=== PATIENT | male | born 1935 | race Asian ===

== ENCOUNTER → 2016-10-17 | Outpatient (CLI) | payer OTHER, MEDICARE ==
[~2016-10-17] MED LIST: AMLO-114 PO; ASPI325T45 PO; ATOR10TA82 PO; B-COCAP2 PO; CHOL100026 PO; LISI-461 PO; MULT-506 PO; OMEG10007 PO; OPTIRAY 320 IV PRN; VITA200C5 PO; VITACAP26 PO
[2016-10-17 11:09] LABS: BLOOD UREA NITROGEN 13 mg/dl (7-18)
--- NOTE | 2016-10-17 12:16 | DIAGNOSTIC IMAGING REPORT ---
CHEST CT WITH CONTRAST CT DOSE: 342.13 mGycm HISTORY: Pulmonary nodule. Follow-up. TECHNIQUE: Multiaxial CT images of the chest were performed following the intravenous administration of contrast. COMPARISON: Chest 10/01/2015. Chest CTA 06/16/2014. FINDINGS: No pleural effusions. No pneumothorax. The central airways are patent. Small fat-containing left-sided Bochdalek hernia. Stable 7 mm subpleural nodule within the right middle lobe. This demonstrates greater than 2 year stability and is therefore likely benign. Stable benign 6 mm nodular density within the lingula on image 211. A few linear scarlike density seen within the lung bases and right upper lobe. This is also unchanged. No new pulmonary nodules identified. A stable 7 mm hypodense nodule within the right thyroid lobe. The visualized liver and spleen are unremarkable. No mediastinal lymphadenopathy. Stable slightly prominent right hilar lymph nodes. Normal caliber thoracic aorta. The central pulmonary arteries are patent. IMPRESSION: No change from the prior studies. Stable subcentimeter pulmonary nodules which demonstrate greater than 2 year stability. Therefore, these are considered to be benign. Electronically signed by: Franki Clay M.D. 10/17/2016 12:15 PM Dictated Date/Time: 10/17/2016 12:09 PM
== END | disposition home or self-care (01) ==
LOC: C.CTS 09:31
PROVIDERS: ATTEND Family Medicine
DX: R91.1 Solitary pulmonary nodule (principal)

== ENCOUNTER → 2017-03-22 | Outpatient (CLI) | payer OTHER, MEDICARE ==
[~2017-03-22] MED LIST changes: -ATOR10TA82 PO; +ATOR10TA88 PO; -OPTIRAY 320 IV PRN
--- NOTE | 2017-03-22 20:43 | DIAGNOSTIC IMAGING REPORT ---
ULTRASOUND BILATERAL LOWER EXTREMITY VENOUS CLINICAL HISTORY: Lower extremity edema. COMPARISON STUDY: No priors. TECHNIQUE: Real-time, grayscale, and color Doppler sonography of the deep veins of the right and left lower extremity was performed from the inguinal crease to the calf. Compression and augmentation were utilized. FINDINGS: There is no sonographic evidence of deep venous thrombosis identified in the right or left lower extremity. The common femoral, superficial femoral, and popliteal veins are patent and normally compressible bilaterally. The greater saphenous vein and the profunda femoris vein at the junction with the common femoral vein are clear in both legs. The visualized calf veins are patent bilaterally. IMPRESSION: There is no sonographic evidence of deep venous thrombosis identified in the right or left lower extremity. Electronically signed by: Isra Keene M.D. 03/22/2017 8:41 PM Dictated Date/Time: 03/22/2017 8:41 PM
== END | disposition home or self-care (01) ==
LOC: C.ULTR 19:16
PROVIDERS: ATTEND Family Medicine
DX: R60.0 Localized edema (principal)

== ENCOUNTER → 2017-12-21 | Outpatient (CLI) | payer OTHER, MEDICARE ==
[~2017-12-21] MED LIST changes: -AMLO-114 PO; +AMLO10TA3 PO; +ASPECOTC PO; -ASPI325T45 PO; +ATOR10TA82 PO; -ATOR10TA88 PO; +OPTIRAY 320 IV PRN
--- NOTE | 2017-12-21 14:50 | DIAGNOSTIC IMAGING REPORT ---
ABD/PELVIS IV AND ORAL CONT CLINICAL HISTORY: 82 years-old Male presenting with malignant neoplasm of the rectum.. TECHNIQUE: Multidetector CT of the abdomen and pelvis was performed after the administration of oral and intravenous contrast. IV contrast: 117 mL of Optiray 320. A dose lowering technique was used consistent with the principles of ALARA (as low as reasonably achievable). COMPARISON: Pelvic MR from 10/01/[address] from 10/01/2015. CT DOSE (mGy.cm): The estimated cumulative dose is 587.89 mGy.cm. FINDINGS: Water Treatment Technician topogram: Unremarkable. Lung bases: Minimal basilar opacities, likely atelectasis. Stable solid 6 mm subpleural nodule in the right middle lobe (series 6 image 19). No new pulmonary nodule at the lung bases. Multichamber enlargement of the heart. No pericardial or pleural effusion. Liver: Normal morphology. No liver lesion. Patent hepatic vasculature. Biliary: No intrahepatic or extrahepatic biliary ductal dilatation. Gallbladder contains gallstones. Pancreas: Normal. Spleen: Numerous punctate calcifications in the spleen suggest a history of chronic granulomatous infection. Adrenal glands: Nonspecific nodular thickening of the adrenal glands, unchanged from prior. Kidneys and ureters: Normal. No hydronephrosis. Bladder: Circumferential bladder wall thickening. Pelvic organs: Prostate enlargement likely secondary to benign prostatic hyperplasia. Bowel: Mild thickening of the mesorectal fascia. No focal wall thickening of the rectum allowing for underdistention. Oral contrast has passed to the descending colon. No bowel obstruction. The appendix is normal. Peritoneal cavity: No free fluid or intraperitoneal gas. Lymph nodes: No enlarged lymph nodes in the abdomen or pelvis. Vasculature: Atherosclerosis of the normal caliber abdominal aorta. IVC patent. The appearance of the right common femoral vein is most likely related to mixing artifact. Abdominal wall: Normal. Musculoskeletal: Degenerative changes of the spine. Bilateral pars defects of L5. No destructive osseous lesion. IMPRESSION: 1. No evidence of recurrent or metastatic disease in the abdomen or pelvis. No lymphadenopathy. 2. No acute intra-abdominal pathology. 3. Mesorectal fascial thickening likely post radiation change. 4. Chronic findings as above. Electronically signed by: Noah Dawson M.D. 12/21/2017 2:49 PM Dictated Date/Time: 12/21/2017 2:41 PM
--- NOTE | 2017-12-21 15:11 | DIAGNOSTIC IMAGING REPORT ---
CT OF THE CHEST WITH IV CONTRAST CLINICAL HISTORY: Rectal cancer. COMPARISON STUDY: Chest CT October 17, 2016. TECHNIQUE: Following IV administration of 117 mL of Optiray-320, helical axial images of the chest were obtained. Sagittal and coronal reconstructions were viewed as well as maximal intensity projections on an independent 3-D workstation. A dose lowering technique was utilized adhering to the principles of ALARA. FINDINGS: No enlarged axillary, hilar or mediastinal lymph nodes are present. Mild cardiomegaly is noted. There is no pericardial effusion. Central airways are patent. A 7 mm subcutaneous pleural right middle lobe nodule shown on image 193 of 321 is unchanged since initial CT of June 16, 2014. A 5 mm lingular nodule shown on image 187 is unchanged. No new nodules are present. There is no consolidation to suggest pneumonia. No suspicious osseous lesions are noted. The abdomen and pelvis will be reported separately. IMPRESSION: 1. No evidence for metastatic disease. 2. No change in multiple pulmonary nodules which are benign given stability. Electronically signed by: Ted Fernández M.D. 12/21/2017 3:10 PM Dictated Date/Time: 12/21/2017 2:50 PM
== END | disposition home or self-care (01) ==
LOC: C.CTS 12:14
PROVIDERS: ATTEND Colon & Rectal Surgery
DX: C20 Malignant neoplasm of rectum (principal)

== ENCOUNTER → 2017-12-29 | Outpatient (CLI) | payer OTHER, MEDICARE ==
[~2017-12-29] MED LIST changes: -OPTIRAY 320 IV PRN
--- NOTE | 2017-12-29 16:02 | DIAGNOSTIC IMAGING REPORT ---
L PELVIS/UNILATERAL HIP 3 views CLINICAL HISTORY: Left hip and buttock pain. COMPARISON STUDY: No previous studies for comparison. FINDINGS: No acute fractures are visualized. There are no erosive or destructive changes. There are minor osteoarthritic changes. IMPRESSION: Minor degenerative change. No fractures identified. Electronically signed by: Ed Miller M.D. 12/29/2017 4:01 PM Dictated Date/Time: 12/29/2017 4:01 PM
--- NOTE | 2017-12-29 16:06 | DIAGNOSTIC IMAGING REPORT ---
LUMBAR SPINE 3 VIEWS HISTORY: L BUTTOCK PAIN, L HIP PAIN COMPARISON: Abdomen and pelvis CT 12/21/2017. FINDINGS: There is no fracture. Mild facet degenerative changes within the lower lumbar spine. The sacrum is intact. 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 This remains unchanged. This spaces are preserved. There are endplate osteophytes throughout the majority of the lumbar spine. IMPRESSION: 1. No fractures within the lumbar spine. 2. 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 Electronically signed by: Franki Clay M.D. 12/29/2017 4:05 PM Dictated Date/Time: 12/29/2017 4:02 PM
== END | disposition home or self-care (01) ==
LOC: C.RAD 15:16
PROVIDERS: ATTEND Family Medicine
DX: M54.5 Low back pain (principal); M25.552 Pain in left hip; M43.06 Spondylolysis, lumbar region